=== PATIENT | male | born 1940 | race Caucasian/White ===

== ENCOUNTER 2017-09-03 20:24 | Emergency (ER) | payer MEDICARE ==
[~2017-09-03] VITALS: Ht 170.2 cm; Wt 121.1 kg
[~2017-09-03 20:24] MED LIST: ACETONIDE TRANSDERM; ACTOS 30 MG TAB30 MG PO; ADULT LOW DOSE81 MG PO; ALBUTEROL2.5 MG/3 M INH; ALDACTONE25 MG PO; AMLODIPINE BESY10 MG PO; AMLODIPINE BESYL5 MG PO; ANALGESIC325 MG PO; ANDROGEL TOP; ANDROGEL2.5 GM TD; APAP500 PO; ASPIR 8181 M1 PO; ASPIR 8181 MG PO; ASPIRIN EC325 MG PO; ASPIRIN325 PO; ASPIRIN81 M2 PO; ATORVASTATIN CA40 MG PO; ATORVASTATIN CA80 MG PO; AVANDIA; AVANDIA OR; BECONASE AQ25 GM NS; BREO ELLIPTA 11 EACH IH; BRILINTA90 MG PO; CARVEDILOL25 MG PO; COREG25 MG PO; CORTIZONE-10 PL28 GM TP; COUMADIN 5 MG TA5 M1 PO; COUMADIN7.5 MG PO; COZAAR 25 MG TA25 M2 PO; COZAAR 50 MG TA50 M2 PO; COZAAR100 MG PO; ENOXAPARIN120 MG/0.8 SQ; FEXOFENADINE H180 MG PO; HYDRALAZINE 10M10 MG PO; HYDRALAZINE 2525 MG PO; HYDROCHLOROTHIA25 M2 PO; HYDROCORTISONE CREAM TOP; HYDROCORTISONE30 G9 RE; IMDUR 60 MG TAB60 M1 PO; ISORDIL 5MG TABL5 MG PO; K-DUR 20 MEQ T20 MEQ PO; LASIX 40 MG TAB40 M2 PO; LEVEMIR; LEVEMIR SUBQ; LIPITOR PO; LIPITOR40 MG PO; LIPITOR80 MG PO; MAGOX 400400 MG PO; MECLIZINE HCL25 M1 PO; METFORMIN; METFORMIN 500500 MG PO; METOLAZONE 2.52.5 M1 PO; METOPROLOL 50 M50 M1 PO; MINOCYCLINE HC100 M2 PO; NASACORT10.8 ML NS; NITROGLYCERIN0.4 MG SUBLING; NORMODYNE200 MG PO; NORVASC10 MG PO; NOVOLOG100 UNIT/1 SQ; NOVOLOG100 UNIT/1 SUBQ; PIOGLITAZONE15 MG PO; PLAVIX 75 MG TA75 M1 PO; POTASSIUM20 PO; PRINIVIL20 MG PO; PROAIR HFA8.5 GM INH; PROPAFENONE 15150 MG PO; PROTONIX40 M1 PO; PROTONIX40 M2 PO; PROVENTIL HFA6.7 G1 INH; SIMVASTATIN80 MG PO; SINGULAIR 10 MG10 M1 PO; SPIRONOLACTONE50 MG PO; SYMBICORT160 MCG/4. INH; TRANDATE 200 M200 M1 PO; TRANDATE100 MG PO; TRIAMCINOLONE A80 G2 TOP; VENTOLIN HFA 1818 GM INH; VENTOLIN HFA INH8 GM INH; VITAMIN C + RO500 MG PO; VITAMIN D-32000 UNIT PO; VITAMIN D1000 UNI1 PO; VITAMIN D32000 UNIT PO; ZESTRIL20 MG PO; ZOCOR80 MG PO; [UNRECOGNIZED DRUG - OTHER] PO
[2017-09-03] MEDS ORDERED: ELIQUIS5 MG PO (20:40)
[2017-09-03] MEDS ORDERED: PLAVIX 75 MG TA75 M1 PO (20:42)
[2017-09-03 20:46] LABS: ABSOLUTE BASOPHILS 0.1 thou/uL (0.0-0.2); ABSOLUTE EOSINOPHILS 0.4 thou/uL (0.0-0.7); ABSOLUTE LYMPHOCYTES 1.1 thou/uL (0.8-5.3); ABSOLUTE MONOCYTES 0.5 thou/uL (0.0-1.2); ABSOLUTE NEUTROPHILS 5.3 thou/uL (1.6-8.1); EOSINOPHILS 5.9 %; HEMATOCRIT 41.1 % (42.0-52.0); HEMOGLOBIN 13.3 gm/dL (14.0-18.0); LYMPHOCYTES 14.6 %; MCH 28.8 pg (26.0-34.0); MCHC 32.4 g/dL (28.0-37.0); MCV 88.9 fL (80.0-100.0); MONOCYTES 6.9 %; MPV 8.2 fl. (7.2-11.1); NUCLEATED RBCS 0 /100WBC; PLATELET COUNT* 238 thou/uL (150-400); POLYS 71.6 %; RBC 4.62 mil/uL (4.50-6.00); RDW-CV 16.2 % (10.5-14.5); WBC 7.4 thou/uL (4.0-11.0)
[2017-09-03 21:00] LABS: ANION GAP 10 mmol/L (7-16); BUN 35 mg/dL (7-18); CALCIUM 9.6 mg/dL (8.5-10.1); CHLORIDE 96 mmol/L (98-107); CO2 25 mmol/L (21-32); GLUCOSE 325 mg/dL (70-99); POTASSIUM 4.3 mmol/L (3.5-5.1); SODIUM 131 mmol/L (136-145)
[2017-09-03 21:03] LABS: APTT 23.8 Seconds (25.0-31.3); INR 1.1
[2017-09-03 21:19] LABS: ALBUMIN 3.6 g/dL (3.4-5.0); ALKALINE PHOSPHATASE 87 U/L (46-116); CK-MB MASS 1.9 ng/mL (<0.5-3.6); LIPASE 117 U/L (73-393); MAGNESIUM 1.5 mg/dL (1.8-2.4); NT-PRO BRAIN NAT PEPTIDE 1235 pg/mL (<300); SGOT 19 U/L (15-37); SGPT 26 U/L (30-65); TOTAL BILIRUBIN 0.7 mg/dL (<0.1-1.0); TOTAL PROTEIN 7.7 g/dL (6.4-8.2); TROPONIN-I LEVEL <0.06 ng/mL (<0.06)
[2017-09-03 21:35] VITALS: BP 132/71
--- NOTE | 2017-09-04 15:19 | EKG ---
[place] [address] ELECTROCARDIOGRAM REPORT Name: PATRICIA RODRIGUEZ [id number] Admission: 09/03/17 Attend Phys: Discharge: 09/03/17 Date of : 44 Report #: [id number] THIS REPORT FOR: //name// [facility] ED Test Date: 2017-09-03 Test Time: 20:27:00 Pat Name: PATRICIA MICHAEL Department: Room: Gender: M Stopperer Assembler: [place] : 1940 Requested By: Aaron Jeffery Order Number: [id number] MD: Rico Irwin Measurements Intervals [place] Rate: 96 P: OR: QRS: -11 QRSD: 114 T: 91 QT: 433 QTc: 548 Interpretive Statements Accelerated junctional rhythm Inferior infarct, old Nonspecific IVCD Consider anterior infarct Prolonged QT interval Compared to ECG 01/21/2017 12:21:57 Accelerated junctional rhythm now present Prolonged QT interval now present Sinus rhythm no longer present First degree AV block no longer present Myocardial infarct finding still present Electronically Signed On 09-04-2017 15:19:35 CDT by Rico Irwin [email or web address] <ELECTRONICALLY SIGNED> By: Rico Irwin MD, [facility] 09/04/17 1519 26 26 Rico Irwin MD, [facility] /EPI
== END 2017-09-03 21:35 | disposition home or self-care (01) ==
LOC: M.ERS 20:24
PROVIDERS: Family Medicine
DX: R07.9 Chest pain, unspecified (principal); I50.9 Heart failure, unspecified; M19.90 Unspecified osteoarthritis, unspecified site; K21.9 Gastro-esophageal reflux disease without esophagitis; E78.5 Hyperlipidemia, unspecified; I48.91 Unspecified atrial fibrillation; I12.9 Hypertensive chronic kidney disease with stage 1 through stage 4 chronic kidney disease, or unspecified chronic kidney disease; G47.33 Obstructive sleep apnea (adult) (pediatric); E11.22 Type 2 diabetes mellitus with diabetic chronic kidney disease; E11.40 Type 2 diabetes mellitus with diabetic neuropathy, unspecified; N18.3 Chronic kidney disease, stage 3 (moderate); Z86.73 Personal history of transient ischemic attack (TIA), and cerebral infarction without residual deficits; Z96.659 Presence of unspecified artificial knee joint; V43.52XA Car driver injured in collision with other type car in traffic accident, initial encounter; Y93.I9 Activity, other involving external motion; Y92.89 Other specified places as the place of occurrence of the external cause; Y99.8 Other external cause status

== ENCOUNTER → 2017-10-12 | Outpatient (CLI) | payer MEDICARE ==
[~2017-10-12] VITALS: Ht 170.2 cm; Wt 127.0 kg
[~2017-10-12] MED LIST changes: +AUGMENTIN 875-1 EACH PO; +ELIQUIS5 MG PO; +PREDNISONE 10 M10 MG PO
[2017-10-14 15:17] LABS: ABSOLUTE BASOPHILS 0.1 thou/uL (0.0-0.2); ABSOLUTE EOSINOPHILS 0.3 thou/uL (0.0-0.7); ABSOLUTE MONOCYTES 0.5 thou/uL (0.0-1.2); ABSOLUTE NEUTROPHILS 5.5 thou/uL (1.6-8.1); BASOPHILS 1.4 %; EOSINOPHILS 3.6 %; HEMATOCRIT 41.8 % (42.0-52.0); HEMOGLOBIN 13.5 gm/dL (14.0-18.0); LYMPHOCYTES 13.5 %; MCH 28.4 pg (26.0-34.0); MCHC 32.3 g/dL (28.0-37.0); MCV 87.8 fL (80.0-100.0); MONOCYTES 7.1 %; MPV 7.7 fl. (7.2-11.1); NUCLEATED RBCS 0 /100WBC; PLATELET COUNT* 225 thou/uL (150-400); POLYS 74.4 %; RBC 4.76 mil/uL (4.50-6.00); RDW-CV 15.5 % (10.5-14.5); WBC 7.4 thou/uL (4.0-11.0)
[2017-10-14 15:27] LABS: APTT 26.8 Seconds (25.0-31.3); INR 1.1; PROTIME 11.1 Seconds (9.20-11.50)
[2017-10-14 15:29] LABS: ALBUMIN 3.5 g/dL (3.4-5.0); CALCIUM 9.1 mg/dL (8.5-10.1); CREATININE 1.9 mg/dL (0.6-1.3); POTASSIUM 4.6 mmol/L (3.5-5.1)
[2017-10-14 15:47] LABS: TOTAL BILIRUBIN 0.7 mg/dL (<0.1-1.0); TOTAL PROTEIN 7.7 g/dL (6.4-8.2)
[2017-10-14 16:40] LABS: ESR (SEDRATE) 14 mm/hr (0-20)
[2017-10-15 04:05] LABS: GLYCOHEMOGLOBIN (HGB A1C) 9.3 % (4.8-5.6)
== END ==
LOC: M.LAB 08:00 → M.SUR 10-16 07:04 → EDSTATUS 10-16 08:46 → M.SUR 10-16 12:10
PROVIDERS: Orthopaedic Surgery
DX: M17.11 Unilateral primary osteoarthritis, right knee (principal); I13.0 Hypertensive heart and chronic kidney disease with heart failure and stage 1 through stage 4 chronic kidney disease, or unspecified chronic kidney disease; E11.22 Type 2 diabetes mellitus with diabetic chronic kidney disease; N18.3 Chronic kidney disease, stage 3 (moderate); I50.9 Heart failure, unspecified; I48.91 Unspecified atrial fibrillation; E78.5 Hyperlipidemia, unspecified; M81.0 Age-related osteoporosis without current pathological fracture; K21.9 Gastro-esophageal reflux disease without esophagitis

== ENCOUNTER → 2017-10-17 | Outpatient (CLI) | payer MEDICARE | LOC: M.RAD 15:33 | DX: Z01.818 Encounter for other preprocedural examination (principal); I11.0 Hypertensive heart disease with heart failure; I50.22 Chronic systolic (congestive) heart failure; J45.30 Mild persistent asthma, uncomplicated; I48.91 Unspecified atrial fibrillation; E11.9 Type 2 diabetes mellitus without complications; I42.9 Cardiomyopathy, unspecified ==

== ENCOUNTER 2018-01-03 12:17 | Inpatient (IN) | payer MEDICARE ==
[~2018-01-03] VITALS: Ht 170.2 cm; Wt 78.5 kg
[~2018-01-03 12:17] MED LIST changes: -AUGMENTIN 875-1 EACH PO; -PREDNISONE 10 M10 MG PO
[2018-01-03 12:28] VITALS: BP 155/97
[2018-01-03] MEDS ORDERED: MAGOX 400400 MG PO (12:35)
[2018-01-03 12:40] LABS: ABSOLUTE EOSINOPHILS 0.3 thou/uL (0.0-0.7); ABSOLUTE LYMPHOCYTES 0.7 thou/uL (0.8-5.3); ABSOLUTE MONOCYTES 0.5 thou/uL (0.0-1.2); ABSOLUTE NEUTROPHILS 5.6 thou/uL (1.6-8.1); BASOPHILS 0.4 %; EOSINOPHILS 3.9 %; HEMATOCRIT 38.6 % (42.0-52.0); HEMOGLOBIN 12.3 gm/dL (14.0-18.0); MCH 26.7 pg (26.0-34.0); MCHC 31.7 g/dL (28.0-37.0); MCV 84.1 fL (80.0-100.0); MONOCYTES 7.5 %; MPV 8.3 fl. (7.2-11.1); NUCLEATED RBCS 0 /100WBC; PLATELET COUNT* 270 thou/uL (150-400); POLYS 78.2 %; RDW-CV 17.8 % (10.5-14.5); WBC 7.2 thou/uL (4.0-11.0)
[2018-01-03 12:49] LABS: ANION GAP 9 mmol/L (7-16); APTT 28.6 Seconds (25.0-31.3); BUN 37 mg/dL (7-18); CALCIUM 9.2 mg/dL (8.5-10.1); CHLORIDE 106 mmol/L (98-107); CO2 26 mmol/L (21-32); CREATININE 2.1 mg/dL (0.6-1.3); GLUCOSE 40 mg/dL (70-99); INR 1.4; POTASSIUM 3.3 mmol/L (3.5-5.1); SODIUM 141 mmol/L (136-145)
[2018-01-03 13:05] LABS: BE -2.1 mmol/L (-2 to +3); PCO2 26.7 mmHg (35.0-45.0); PO2 106.1 mmHg (75.0-100.0); pH 7.493 (7.340-7.450)
[2018-01-03 13:08] LABS: ALBUMIN 3.5 g/dL (3.4-5.0); ALKALINE PHOSPHATASE 86 U/L (46-116); CK-MB MASS 2.3 ng/mL (<0.5-3.6); LIPASE 90 U/L (73-393); MAGNESIUM 1.7 mg/dL (1.8-2.4); NT-PRO BRAIN NAT PEPTIDE 4423 pg/mL (<300); SGOT 23 U/L (15-37); SGPT 27 U/L (30-65); TOTAL BILIRUBIN 1.2 mg/dL (<0.1-1.0); TOTAL PROTEIN 7.8 g/dL (6.4-8.2); TROPONIN-I LEVEL <0.06 ng/mL (<0.06)
[2018-01-03 14:47] VITALS: BP 140/70
[2018-01-03 15:30] VITALS: BP 127/76
[2018-01-03 20:00] VITALS: BP 148/89
[2018-01-04 00:48] VITALS: BP 143/81
[2018-01-04 04:59] VITALS: BP 150/86
[2018-01-04 08:30] VITALS: BP 145/69
[2018-01-04 12:00] VITALS: BP 130/81
--- NOTE | 2018-01-04 12:15 | EKG ---
[place] [address] ELECTROCARDIOGRAM REPORT Name: PATRICIA RODRIGUEZ Room: [address] ADM IN M.R.#: [id number] Admission: 01/03/18 Attend Phys: Wayne Caballero MD Discharge: Date of : 44 Report #: [id number] THIS REPORT FOR: //name// [facility] ED Test Date: 2018-01-03 Test Time: 12:24:33 Pat Name: PATRICIA GUERRAB Department: Room: [facility] Gender: M Tie Inspector: : 1940 Requested By: Aaron Jeffery Order Number: [id number] MD: Nathaniel Rowe Measurements Intervals [place] Rate: 69 P: 43 MT: 313 QRS: -16 QRSD: 123 T: 144 QT: 415 QTc: 445 Interpretive Statements Sinus rhythm Multiple ventricular premature complexes Prolonged MT interval Left bundle branch block Compared to ECG 09/03/2017 20:27:00 Ventricular premature complex(es) now present First degree AV block now present Left bundle-branch block now present Accelerated junctional rhythm no longer present Myocardial infarct finding no longer present Intraventricular conduction delay no longer present Prolonged QT interval no longer present Electronically Signed On 01-04-2018 12:15:46 AUTOMATIC VULCANIZING OPERATOR by Nathaniel Rowe [email or web address] <ELECTRONICALLY SIGNED> By: Nathaniel Rowe MD, FAC 01/04/18 1215 1224 1224 Nathaniel Rowe MD, FAC /EPI
[2018-01-04 16:00] VITALS: BP 127/72
[2018-01-04 20:00] VITALS: BP 136/84
[2018-01-05] VITALS: BP 137/83
[2018-01-05 04:00] VITALS: BP 125/78
[2018-01-05 08:00] VITALS: BP 140/84
[2018-01-05 12:00] VITALS: BP 124/64
--- NOTE | 2018-01-05 13:35 | CON ---
[address] [address] CONSULTATION Name: PATRICIA RODRIGUEZ Room: [address] IN M.R.#: [id number] Admission: 01/03/18 Attend Phys: Wayne Caballero MD Discharge: Date of : 44 Report #: [id number] THIS REPORT FOR: //name// CC: Vikas Saba MD Christristian Leung Chris Xochitl Caballero REQUESTING PHYSICIAN: Dr. Caballero. REASON FOR CONSULTATION: Shortness of breath. DISCUSSION: The patient is a 77-year-old man who is a lifelong nonsmoker. He does have a history of underlying asthma and he has not been steroid or O2 dependent. Also, has a history of obstructive sleep apnea and sleeps with BiPAP. He has a significant cardiac history as well as diabetes mellitus. Yesterday morning, he woke, was short of breath. Was having some cough, which typically was nonproductive. He was not aware of any fevers at home. He was coughing so hard, he did note he had bit of a sore throat. He continued to have trouble breathing. He was seen in the Emergency Department. Had some associated chest pressure with that. Was evaluated in the Emergency Department and was admitted. Reviewing the records, note his lungs were clear, but he had decreased breath sounds. Lab did show a metabolic acidosis. ProBNP was just over 4400. He was started on IV steroids, antibiotics, was also given some Lasix. He is feeling better this morning. Has been afebrile. He is still having a dry nonproductive cough. He is otherwise feeling much better relative to yesterday. He did sleep with his home BiPAP last night. He has a history of asthma as noted. He did have full pulmonary function studies done several years ago here. They were consistent with only very mild obstructive process. At that time, his FEV1 was 1.19, FVC 2.3 with a ratio of 81%. However, his FEV1 was 68% of predicted. He did have a concomitant restrictive process. Has the sleep apnea as noted and he is on BiPAP. At home, for his asthma he is on montelukast 10 mg a day. He also uses Breo daily, which was not on his medication list, unknown strength. From his description, I believe he may have a rescue inhaler at home, though it is not clear what this is. He has typically not been using it. The Breo had done well for him for quite some time, though he notes overall it does not seem to be lasting a full 24 hours. States he has had his flu shot this season. He has not had any ill contacts that he is aware of. PAST MEDICAL HISTORY: Also, besides his asthma and obstructive sleep apnea, is remarkable for significant coronary artery disease. He had coronary artery bypass grafting surgery done about [address] Gamb[place]. [place] [address] CONSULTATION Name: PATRICIA RODRIGUEZ Room: [address] IN ..#: [id number] Admission: 01/03/18 Attend Phys: Wayne Caballero MD Discharge: Date of : 44 Report #: [id number] non-STEMI, stents placed as well. He has atrial fibrillation and is kept chronically anticoagulated. He has history of GERD and he is on chronic medication for that, diabetes mellitus type 2, chronic kidney disease, dyslipidemia, hypertension. He has had gallstone pancreatitis, tonsillectomy, UVPP done years ago, cholecystectomy, osteoarthritis. SOCIAL HISTORY: He is a lifelong nonsmoker. He is retired. He is . FAMILY HISTORY: Positive for heart disease. REVIEW OF SYSTEMS: ROS was done. Note positives as above. He has ongoing issues with edema. He notes there is always discussion between his physicians as to what to do with his diuretics. He has had a sore throat and a lot of cough as noted. He does sleep with his BiPAP every night. Typically he feels rested in the morning when he gets up. He has not heard himself wheeze. He has not had any sputum. Did have some chest tightness yesterday, it has resolved today. Denies any difficulty swallowing. He does note at times, however, if he does start to swallow something it may trigger a significant cough. No syncopal episodes. Rare palpitations. Otherwise, unremarkable. PHYSICAL EXAMINATION: GENERAL APPEARANCE: A large man. Was seen coming out of the bathroom. He was sitting up in a chair, in no acute distress. HEENT: Head is normocephalic and atraumatic. Currently, he is off the oxygen. Sclerae nonicteric. Mucous membranes do look a little dry. Did have an intermittent dry nonproductive cough. NECK: Large, but supple without adenopathy. No JVD is noted. HEART: Irregularly irregular. No S3 is heard. Does have a well-healed median sternotomy scar. LUNGS: Sounds are clear. No wheezing or crackles are heard. Excursion is equal. ABDOMEN: Large and obese. Healed surgical scars. EXTREMITIES: Lower extremities, he does have some trace pretibial edema. SKIN: Warm and dry. NEUROLOGIC: He is alert and oriented x 3. Moving all extremities. LABORATORY AND X-RAY FINDINGS: Arterial blood gases done yesterday on 2 liters, he had a pH of 7.493, pCO2 of 27, pO2 of 106, bicarbonate 20, saturation of 98%. White blood cell count is 5600, hemoglobin 11.3, hematocrit 35.5, platelets are normal. INR was 1.4. This morning, BUN is 36, creatinine of 2.3, serum bicarbonate of 21, down from 28 yesterday. Glucose is 373. Magnesium 1.7. ProBNP yesterday was 4423. Troponins were less than 0.06. Last echocardiogram report I have access to was 08/2016. At that time, EF was 35-40%. RV was normal. He had trace mitral regurgitation, no aortic valve disease. Blood cultures were sent, those [place] [address] CONSULTATION Name: PATRICIA RODRIGUEZ Room: [address] IN [facility].#: [id number] Admission: 01/03/18 Attend Phys: Wayne Caballero MD Discharge: Date of : 44 Report #: [id number] IMPRESSION: 1. Status post acute hypoxic respiratory failure, improved. It has improved with additional diuretic given overnight. May have had a component of heart failure. Some of the sore throat, increased cough, may have had a viral infection. However, he has not had a significant fever, cultures are negative to date. Had no acute infiltrates noted on chest film yesterday. 2. Coronary artery disease with ischemic cardiomyopathy. Known to have a decrease in his ejection fraction. 3. Obstructive sleep apnea. Status post UVPP many years ago. He is compliant with BiPAP at home. 4. Asthma, currently is wheeze free. He is managed on Breo, steroid nasal spray and montelukast at home. 5. Diabetes mellitus type 2. Poor control. 6. Chronic kidney disease. 7. History of hypertension. 8. Obesity. RECOMMENDATIONS: 1. I will discontinue IV steroids. He is doing much better and it is only exacerbating his blood sugars. 2. Start Brovana and budesonide via nebulizer while he is here to take the place of his Breo. 3. Continue home BiPAP while sleeping. 4. Cautious diuresis is indicated. <ELECTRONICALLY SIGNED> By: Dulce Jean MD 01/05/18 1335 1003 1210Felicitas Rothman MD /nt
--- NOTE | 2018-01-05 14:22 | 2DMMODE ---
[place] [address] 2 D/M-MODE ECHOCARDIOGRAM Name: PATRICIA RODRIGUEZ Room: [address] IN [facility]#: [id number] Admission: 01/03/18 Attend Phys: Wayne Caballero, Discharge: Date of : 44 Date of Service: 01/05/18 1422 Report #: [id number] THIS REPORT FOR: //name// APPROVED REPORT Study performed: 01/05/2018 11:16:07 EXAM: Comprehensive 2D, Doppler, and color-flow Echocardiogram Patient Location: In-Patient Room #: 218 Status: routine BSA: 2.30 HR: 91 bpm BP: 140/84 mmHg Rhythm: NSR Other Information Technically limited study due to poor endocardial definition, body habitus. Indications Dyspnea Echo Enhancing Agent Indication: Endocardial border delineation Agent(s) / Amount(s) Used: Optison 3 cc 2D Dimensions IVSd: 14.16 (7-11mm) LVOT Diam: 22.74 (18-24mm) LVDd: 55.34 mm PWd: 11.02 (7-11mm) Ascending Ao: 38.36 (22-36mm) LVDs: 41.58 (25-40mm) Aortic Root: 35.93 mm Volumes Left Atrial Volume (Systole) LA ESV Index: 46.00 mL/m2 Aortic Valve AoV Peak Syed.: 1.04 m/s AO Peak Gr.: 4.33 mmHg LVOT Max P.83 mmHg AO Mean Gr.: 2.48 mmHg LVOT Mean P.48 mmHg LVOT Max V: 0.84 m/s AO V2 VTI: 18.80 cm LVOT Mean V: 0.56 m/s MARGARITA (VTI): 3.57 cm2 LVOT V1 VTI: 16.52 [place] [address] 2 D/M-MODE ECHOCARDIOGRAM Name: PATRICIA RODRIGUEZ Room: [address] IN [facility]#: [id number] Admission: 01/03/18 Attend Phys: Wayne Caballero, Discharge: Date of : 44 Date of Service: 01/05/18 1422 Report #: [id number] Mitral Valve MV Decel. Time: 158.73 ms MV PHT: 46.03 ms MVA (PHT): 4.78 cm2 TDI Medial E' Syed.: 0.06 m/s Lateral E' Syed.: 0.08 m/s Pulmonary Valve PV Peak Syed.: 0.80 m/s PV Peak Gr.: 2.56 mmHg Tricuspid Valve RAP Estimate: 5.00 mmHg TR Peak Gr.: 40.93 mmHg RVSP: 45.00 mmHg PA Pressure: 45.00 mmHg Left Ventricle The left ventricle is normal size. There is normal LV segmental wall motion. There is normal left ventricular wall thickness. Left ventricular systolic function is mildly decreased. LVEF is 45-50%. Right Ventricle The right ventricle is normal size. The right ventricular systolic function is normal. Atria Left atrium is moderately dilated. The right atrium size is normal. Aortic Valve Mild aortic valve sclerosis. No aortic regurgitation is present. There is no aortic valvular stenosis. Mitral Valve The mitral valve is normal in structure. Trace mitral regurgitation. No evidence of mitral valve stenosis. Tricuspid Valve The tricuspid valve is normal in structure. Mild tricuspid regurgitation. Pulmonic Valve The pulmonary valve is normal in structure[place] [address] 2 D/M-MODE ECHOCARDIOGRAM Name: PATRICIA RODRIGUEZ Room: [address] IN ..#: [id number] Admission: 01/03/18 Attend Phys: Wayne Caballero, Discharge: Date of : 44 Date of Service: 01/05/18 1422 Report #: [id number] regurgitation. Great Vessels The aortic root is normal in size. IVC is normal in size and collapses >50% with inspiration. Pericardium There is no pericardial effusion. <Conclusion> The left ventricle is normal size. There is normal left ventricular wall thickness. Left ventricular systolic function is mildly decreased. LVEF is 45-50%. The right ventricle is normal size. Left atrium is moderately dilated. Mild aortic valve sclerosis. No aortic regurgitation is present. There is no aortic valvular stenosis. The mitral valve is normal in structure. Trace mitral regurgitation. The tricuspid valve is normal in structure. Mild tricuspid regurgitation. IVC is normal in size and collapses >50% with inspiration. There is no pericardial effusion. There is normal LV segmental wall motion. <ELECTRONICALLY SIGNED> By: Rico Irwin MD, FACC 01/05/18 142 21 142 Rico Irwin MD, FACC /INF
[2018-01-05 16:00] VITALS: BP 123/78
[2018-01-05 20:10] VITALS: BP 142/88
[2018-01-06] VITALS (7 sets, daily range): BP systolic 121–155; BP diastolic 59–96
[2018-01-06 05:33] LABS: HEMATOCRIT 35.8 % (42.0-52.0); HEMOGLOBIN 11.2 gm/dL (14.0-18.0); MCH 26.5 pg (26.0-34.0); MCHC 31.3 g/dL (28.0-37.0); MCV 84.5 fL (80.0-100.0); MPV 8.6 fl. (7.2-11.1); NUCLEATED RBCS 0 /100WBC; PLATELET COUNT* 212 thou/uL (150-400); RBC 4.24 mil/uL (4.50-6.00); RDW-CV 18.1 % (10.5-14.5); WBC 8.6 thou/uL (4.0-11.0)
[2018-01-06 05:51] LABS: CALCIUM 9.4 mg/dL (8.5-10.1); CREATININE 1.9 mg/dL (0.6-1.3); POTASSIUM 4.6 mmol/L (3.5-5.1)
[2018-01-06 07:06] LABS: ABSOLUTE LYMPHOCYTES 0.1 thou/uL (0.8-5.3); ABSOLUTE MONOCYTES 0.2 thou/uL (0.0-1.2); ABSOLUTE NEUTROPHILS 8.3 thou/uL (1.6-8.1); ANISOCYTOSIS 1+; PLATELET ESTIMATE ADEQUATE; POIKILOCYTOSIS 1+
[2018-01-07 04:00] VITALS: BP 140/79
[2018-01-07 08:00] VITALS: BP 142/84
[2018-01-07 11:16] VITALS: BP 116/62
[2018-01-07 16:02] VITALS: BP 118/68
[2018-01-07 20:00] VITALS: BP 144/84
[2018-01-08] VITALS: BP 127/74
[2018-01-08 04:50] LABS: ABSOLUTE EOSINOPHILS 0.1 thou/uL (0.0-0.7); ABSOLUTE LYMPHOCYTES 0.7 thou/uL (0.8-5.3); ABSOLUTE MONOCYTES 0.6 thou/uL (0.0-1.2); ABSOLUTE NEUTROPHILS 8.2 thou/uL (1.6-8.1); BASOPHILS 0.3 %; EOSINOPHILS 1.5 %; HEMATOCRIT 35.9 % (42.0-52.0); HEMOGLOBIN 11.5 gm/dL (14.0-18.0); MCH 26.3 pg (26.0-34.0); MCV 82.4 fL (80.0-100.0); MONOCYTES 6.5 %; MPV 8.3 fl. (7.2-11.1); NUCLEATED RBCS 0 /100WBC; PLATELET COUNT* 237 thou/uL (150-400); POLYS 84.7 %; RBC 4.36 mil/uL (4.50-6.00); RDW-CV 17.6 % (10.5-14.5); WBC 9.7 thou/uL (4.0-11.0)
[2018-01-08 05:15] LABS: CALCIUM 9.3 mg/dL (8.5-10.1); CREATININE 1.6 mg/dL (0.6-1.3); POTASSIUM 4.3 mmol/L (3.5-5.1)
[2018-01-08 07:54] VITALS: BP 149/88
[2018-01-08] MEDS ORDERED: PREDNISONE 10 M10 MG PO (11:10)
[2018-01-08] MEDS ORDERED: AUGMENTIN 875-1 EACH PO (11:12)
[2018-01-08 11:36] VITALS: BP 121/63
--- NOTE | 2018-01-09 12:49 | CON ---
[address] [address] CONSULTATION Name: PATRICIA RODRIGUEZ Room: [address] IN M.R.#: [id number] Admission: 01/03/18 Attend Phys: Wayne Caballero MD Discharge: 01/08/18 Date of : 44 Report #: [id number] THIS REPORT FOR: //name// CC: Chris Caballero DATE OF SERVICE: 01/04/2018 CHIEF COMPLAINT: Shortness of breath, chest pain. HISTORY OF PRESENT ILLNESS: The patient is a 77-year-old man with obstructive lung disease, coronary artery disease, atrial fibrillation and morbid obesity, who presents with increasing shortness of breath over the last 7-10 days and weight gain. He usually keeps a log of his weights, but he lost his notebook. He does take Lasix daily. He denies chest tightness, but over the last 2-3 days, had been having increasing dyspnea and orthopnea and PND. He has a history of chronic coronary artery disease. He has not required any nitroglycerin lately. He has recently had a cardiac catheterization demonstrated patency of his bypass grafts. PAST MEDICAL HISTORY: He has chronic coronary artery disease. He most recently had a cardiac catheterization, which demonstrated the following. On 12/30/2016, his LAD and circumflex were chronically occluded. His PIERRE to LAD was widely patent. There is a patent vein graft to diagonal branch. He did have a PCI to the [place] vessel of his circumflex. This was in the acute setting. His right coronary artery is near normal. His circumflex apparently was not grafted. He has a remote history of bypass surgery. He has preserved LV systolic function. He has chronic diastolic heart failure, morbid obesity, obstructive lung disease, chronic kidney disease. HOME MEDICATIONS: Include the following: Insulin, atorvastatin 80 mg daily, Aldactone 50 mg daily, Plavix 75 mg daily, Imdur 120 mg daily, Lasix 80 mg daily, losartan 12.5 mg daily, Coreg 25 mg p.o. b.i.d., Protonix 40 mg daily and apixaban 5 mg p.o. b.i.d. REVIEW OF SYSTEMS: GASTROINTESTINAL: No hematemesis or melena. GENITOURINARY: No dysuria or hematuria. NEUROLOGIC: Denies headaches, blurry vision, slurred speech, or numbness. CARDIOVASCULAR: Positive chest pain, positive dyspnea, positive edema. MUSCULOSKELETAL: No joint pain or swelling. No falls. PSYCHIATRIC: [place] [address] CONSULTATION Name: PATRICIA RODRIGUEZ Jason Room: [address]#: [id number] Admission: 01/03/18 Attend Phys: Wayne Caballero MD Discharge: 01/08/18 Date of : 44 Report #: [id number] PHYSICAL EXAMINATION: VITAL SIGNS: His weight today is 78 kilograms, blood pressure is 145/69, sinus rhythm 78 beats per minute. GENERAL: Obese, elderly male. He is alert, in no apparent distress. NECK: Supple. No jugular venous distention. CARDIOVASCULAR: Regular. I cannot hear an S3. LUNGS: Diminished breath sounds bilaterally. ABDOMEN: Distended. There is no rebound or guarding. EXTREMITIES: There is trace edema. NEUROLOGIC: There are no focal deficits. LABORATORY DATA: Electrocardiogram demonstrates sinus rhythm with nonspecific T-wave abnormality, poor R-wave progression, PVCs. Cardiac troponin level was 0.06 x 3 sets. His creatinine is 2.3. Sodium is 136, potassium 4.4, chloride is 101, CO2 is 21. IMPRESSION: 1. Acute diastolic heart failure. 2. Chronic obstructive pulmonary disease exacerbation. 3. Morbid obesity. 4. Coronary artery disease. 5. Status post coronary artery bypass graft. 6. Paroxysmal atrial fibrillation. PLAN: For the time being, I would continue with aggressive medical therapy. He does not seem to be having unstable angina. I suspect this is more of a volume related issue with right-sided heart failure. He has some degree of chronic obstructive pulmonary disease exacerbation as well. Continue with IV Lasix as his renal function tolerates. I would not discontinue or change his cardiovascular medications for the time being. <ELECTRONICALLY SIGNED> By: Nathaniel Rowe MD, FACC 01/09/18 1249 1116 1554Nathaniel Rowe MD, FACC /nt
== END 2018-01-08 14:08 | disposition home or self-care (01) | DRG 291 ==
LOC: M.ERS 12:17 → M.TBA-ER 13:35 → M.2W 13:35
PROVIDERS: Family Medicine; Internal Medicine; Internal Medicine Cardiovascular Disease
PROC: 5A09357 Assistance with Respiratory Ventilation, Less than 24 Consecutive Hours, Continuous Positive Airway Pressure (ICD-10-PCS; principal; 2018-01-03)
PROC: 5A09357 Assistance with Respiratory Ventilation, Less than 24 Consecutive Hours, Continuous Positive Airway Pressure (ICD-10-PCS; 2018-01-04)
PROC: 5A09357 Assistance with Respiratory Ventilation, Less than 24 Consecutive Hours, Continuous Positive Airway Pressure (ICD-10-PCS; 2018-01-05)
PROC: 5A09357 Assistance with Respiratory Ventilation, Less than 24 Consecutive Hours, Continuous Positive Airway Pressure (ICD-10-PCS; 2018-01-06)
PROC: 5A09357 Assistance with Respiratory Ventilation, Less than 24 Consecutive Hours, Continuous Positive Airway Pressure (ICD-10-PCS; 2018-01-07)
DX: I13.0 Hypertensive heart and chronic kidney disease with heart failure and stage 1 through stage 4 chronic kidney disease, or unspecified chronic kidney disease (principal); J96.01 Acute respiratory failure with hypoxia; I50.43 Acute on chronic combined systolic (congestive) and diastolic (congestive) heart failure; J45.901 Unspecified asthma with (acute) exacerbation; J44.1 Chronic obstructive pulmonary disease with (acute) exacerbation; I27.20 Pulmonary hypertension, unspecified; M19.90 Unspecified osteoarthritis, unspecified site; K21.9 Gastro-esophageal reflux disease without esophagitis; E78.5 Hyperlipidemia, unspecified; N18.3 Chronic kidney disease, stage 3 (moderate); G47.33 Obstructive sleep apnea (adult) (pediatric); E11.22 Type 2 diabetes mellitus with diabetic chronic kidney disease; E11.40 Type 2 diabetes mellitus with diabetic neuropathy, unspecified; I48.0 Paroxysmal atrial fibrillation; E11.65 Type 2 diabetes mellitus with hyperglycemia; I25.5 Ischemic cardiomyopathy; I25.10 Atherosclerotic heart disease of native coronary artery without angina pectoris; E66.01 Morbid (severe) obesity due to excess calories; Z68.27 Body mass index [BMI] 27.0-27.9, adult; I25.2 Old myocardial infarction; Z86.73 Personal history of transient ischemic attack (TIA), and cerebral infarction without residual deficits; Z95.1 Presence of aortocoronary bypass graft; Z95.5 Presence of coronary angioplasty implant and graft; Z90.49 Acquired absence of other specified parts of digestive tract; Z79.4 Long term (current) use of insulin; Z79.02 Long term (current) use of antithrombotics/antiplatelets; Z79.01 Long term (current) use of anticoagulants; Z79.899 Other long term (current) drug therapy; Z82.49 Family history of ischemic heart disease and other diseases of the circulatory system